=== PATIENT | male | born 2000 | race Caucasian/White ===

== ENCOUNTER 2023-05-20 23:40 | Emergency (ER) | payer MEDICAID ==
[~2023-05-20] VITALS: Ht 182.9 cm; Wt 73.0 kg
[2023-05-20 23:58] VITALS: O2SAT 100
[2023-05-21] MEDS ORDERED: IBUP-2028 MT (00:13)
[2023-05-21 00:25] VITALS: BP 140/86; PULSE 104; RESP 18; TEMP 98
== END 2023-05-21 00:26 | disposition home or self-care (01) ==
LOC: ER 23:40
DX: M79.604 Pain in right leg (principal)
CPT/HCPCS: 99281; 99282